=== PATIENT | female | born 1945 ===

== ENCOUNTER 2018-10-23 13:47 | Emergency (ER) | payer MEDICAID ==
[2018-10-23 13:56] VITALS: PULSE 80; O2SAT 99
[2018-10-23] MEDS ORDERED: Oxycodone/Acetaminophen 5/325 mg Tab PO STA (14:34)
[2018-10-23] MEDS ORDERED: Oxycodone/Acetaminophen 5/325 mg Tab ONE (14:39)
--- NOTE | 2018-10-23 15:12 | ED PDOC ---
HPI: Back Time Seen by Provider: 10/23/18 14:02 Chief Complaint (Nursing): Back Pain Chief Complaint (Provider): Back Pain History Per: Patient History/Exam Limitations: no limitations Current Symptoms Are (Timing): Still Present Additional Complaint(s): Patient is a 73 year old female with a past medical history of diabetes and hypertension, who presents to the emergency department complaining of right lower back pain that radiates to right lateral leg. She denies having any fever, swelling, or recent trauma. PMD: Yovani Damon Past Medical History Reviewed: Historical Data, Nursing Documentation, Vital Signs Vital Signs: Last Vital Signs Temp 98.2 F 10/23/18 13:53 Pulse 80 10/23/18 13:53 Resp 18 10/23/18 13:53 BP 160/90 H 10/23/18 13:53 Pulse Ox 99 10/23/18 13:53 - Medical History PMH: Diabetes, HTN - Surgical History Surgical History: No Surg Hx - Family History Family History: States: Unknown Family Hx - Home Medications Home Medications: Ambulatory Orders Medication Instructions Recorded Lidocaine 5% [Lidoderm] 1 ea TD DAILY #7 patch 10/23/18 - Allergies Allergies/Adverse Reactions: Allergies Allergy/AdvReac Type Severity Reaction Status Date / Time aspirin Allergy RASH Verified 10/23/18 13:52 Review of Systems ROS Statement: Except As Marked, All Systems Reviewed And Found Negative Constitutional: Negative for: Fever Musculoskeletal: Positive for: Back Pain ((-)swelling), Leg Pain ((-)swelling) Physical Exam - Reviewed Nursing Documentation Reviewed: Yes Vital Signs Reviewed: Yes - Physical Exam Appears: Positive for: Non-toxic, No Acute Distress Head Exam: Positive for: ATRAUMATIC, NORMOCEPHALIC Skin: Positive for: Normal Color, Warm, Dry Eye Exam: Positive for: Normal appearance, EOMI, PERRL ENT: Positive for: Normal ENT Inspection Neck: Positive for: Normal, Painless ROM, Supple Cardiovascular/Chest: Positive for: Regular Rate, Rhythm. Negative for: Murmur Respiratory: Positive for: Normal Breath Sounds. Negative for: Respiratory Distress Gastrointestinal/Abdominal: Positive for: Normal Exam, Soft. Negative for: Tenderness Back: Positive for: Normal Inspection. Negative for: L CVA Tenderness, R CVA Tenderness, Vertebral Tenderness Extremity: Positive for: Normal ROM. Negative for: Pedal Edema, Deformity, Other (TTP along the hip, pelvis, ) Neurological/Psych: Positive for: Alert, Oriented - ECG O2 Sat by Pulse Oximetry: 99 (RA) Pulse Ox Interpretation: Normal Medical Decision Making Medical Decision Making: Time: 1433 A/P: Work up for lower back pain that is radiating to right lower leg. --Flexeril 10 mg PO --Percocet 5/325 mg Tab Time: 1724 --Patient's pain has improved and patient is to be discharged home with extra strength Tylenol. --Patient has been instructed to follow up for [employer] pain control. --Due to age, it is unsafe to send patient home with opioids and muscle relaxants. Scribe Attestation: Documented by Mark Chiu , acting as a scribe for Ofe Dodge MD. Provider Scribe Attestation: All medical record entries made by the Scribe were at my direction and personally dictated by me. I have reviewed the chart and agree that the record accurately reflects my personal performance of the history, physical exam, medical decision making, and the department course for this patient. I have also personally directed, reviewed, and agree with the discharge instructions and disposition. Disposition - Clinical Impression Clinical Impression: Back pain, Low back pain - Disposition Disposition: Routine/Home Disposition Time: 17:24 Condition: IMPROVED Additional Instructions: Follow up with primary medical doctor. Take Tylenol as needed every 6 hours for pain. Prescriptions: Lidocaine 5% [Lidoderm] 1 ea TD DAILY #7 patch Forms: [employer] ([place]ian) Print Language: SURINAM[place]
[2018-10-23] MEDS ORDERED: Lidocaine 5% Patch TD STA (17:36)
[2018-10-23] MEDS ORDERED: Lidocaine 5% Patch TD ONE (17:41)
[2018-10-23 17:51] VITALS: BP 148/86; RESP 16; TEMP 98.1
== END 2018-10-23 17:59 | disposition home or self-care (01) ==
LOC: H.ER 13:47
DX: M54.5 Low back pain (principal)